=== PATIENT | female | born 1935 | race Caucasian/White ===

== ENCOUNTER 2022-04-15 10:40 | Outpatient (CLI) | payer MEDICARE, MEDICAID | END 2022-04-15 10:41 | disposition critical access hospital (66) | LOC: EMS 10:40 | DX: M25.512 Pain in left shoulder (principal); R51.9 Headache, unspecified | CPT/HCPCS: A0425; A0429 ==

== ENCOUNTER 2022-04-15 10:59 | Emergency (ER) | payer MEDICARE, MEDICAID ==
--- NOTE | 2022-04-15 12:30 | ED Physician Documentation ---
PD HPI UPPER EXT INJURY - Stated complaint Stated Complaint: L SHOULDER SPASMS - Chief complaint Chief Complaint: General - History obtained from History obtained from: Patient, Caregiver - History of Present Illness Location: Left, Shoulder, Other (lateral and posterior chest wall area on left. No pain on right. having some pain to neck and left head. No rash nor sores.) Type of injury: No: Fall, Twist Where injury occurred: Other (she is a resident [facility], with daughter living nearby.) Timing - onset: Today, Last night Timing - duration: Hours (8-10 hours since onset of the pains.) Timing - details: Gradual onset, Still present, Waxing and waning. No: Intermittant Improved by: No: Rest Worsened by: Moving (left shoulder abduction to 90 degrees is most painful, and with overhead reaching. Not pleuritic.). No: Palpating Associated symptoms: No: Weakness, Numbness, Swelling Similar symptoms before: Has not had sx before Recently seen: Not recently seen Review of Systems Constitutional: reports: Myalgias, Fatigue (for 2-3 days). denies: Fever, Chills Nose: reports: Rhinorrhea / runny nose, Congestion Throat: reports: Sore throat Cardiac: denies: Chest pain / pressure, Palpitations Respiratory: reports: Dyspnea, Cough (mild) GI: denies: Abdominal Pain, Vomiting, Diarrhea Skin: denies: Rash, Lesions Musculoskeletal: reports: Neck pain (left side of neck.) Neurologic: reports: Generalized weakness, Headache (left side). denies: Focal weakness, Near syncope, Altered mental status, Head injury PD PAST MEDICAL HISTORY - Past Medical History Respiratory: None Endocrine/Autoimmune: Type 2 diabetes - Present Medications Home Medications: Ambulatory Orders Medication Instructions Recorded Confirmed ALPRAZolam [Xanax] 0.25 mg PO TID PRN 04/15/22 04/15/22 Acetaminophen [Acetaminophen Extra 500 mg PO QID PRN #30 tablet 04/15/22 Strength] Acetaminophen [Tylenol] 650 mg PO Q6H PRN 04/15/22 04/15/22 Albuterol Sulf [Ventolin Hfa 2 puffs INH QID #1 each 04/15/22 Inhaler] Atorvastatin [Lipitor] 5 mg ORAL HS 04/15/22 04/15/22 Donepezil HCl [Aricept] 10 mg PO DAILY 04/15/22 04/15/22 Escitalopram [Lexapro] 10 mg PO DAILY 04/15/22 04/15/22 Gabapentin [Neurontin] 300 mg PO BID 04/15/22 04/15/22 Levothyroxine Sodium 50 mcg PO DAILY 04/15/22 04/15/22 [Levothyroxine] Losartan Potassium [Cozaar] 100 mg PO DAILY 04/15/22 04/15/22 Metoprolol Succinate 100 mg PO DAILY 04/15/22 04/15/22 Multivitamin 1 each PO DAILY 04/15/22 04/15/22 Nitrofurantoin [Macrobid] 100 mg PO BID 04/15/22 04/15/22 Omeprazole Magnesium 20 mg PO DAILY 04/15/22 04/15/22 QUEtiapine [SEROquel] 25 mg PO QPM 04/15/22 04/15/22 Sitagliptin Phosphate [Januvia] 25 mg PO DAILY 04/15/22 04/15/22 Zolpidem [Ambien] 5 mg PO HS 04/15/22 04/15/22 buPROPion [Wellbutrin Sr] 150 mg PO BID 04/15/22 04/15/22 cephALEXin [Keflex] 500 mg PO TID #18 cap 04/15/22 - Allergies Allergies/Adverse Reactions: Allergies Allergy/AdvReac Type Severity Reaction Status Date / Time ciprofloxacin Allergy Unknown Verified 04/15/22 11:10 codeine Allergy Unknown Verified 04/15/22 11:10 Corticosteroids Allergy Unknown Verified 04/15/22 11:10 (Glucocorticoids) erythromycin base Allergy Unknown Verified 04/15/22 11:10 haloperidol [From Haldol] Allergy Unknown Verified 04/15/22 11:10 PD ED PE NORMAL - Vitals Vital signs reviewed: Yes - General General: Alert and oriented X 3, No acute distress, Well developed/nourished - HEENT HEENT: Atraumatic. No: Moist mucous membranes - Neck Neck: Supple, no meningeal sign, No bony TTP, No adenopathy - Cardiac Cardiac: RRR, No murmur - Respiratory Respiratory: No: Clear bilaterally (there are decreased sounds on left. prolonged expiratory phase. ) Results - Vitals Vitals: Vital Signs - 24 hr 04/15/22 04/15/22 04/15/22 11:10 15:17 17:12 Temperature 37.1 C Heart Rate 73 65 58 L Respiratory 18 14 15 Rate Blood Pressure 125/104 H 120/61 138/63 H O2 Saturation 94 96 92 Oxygen O2 Source Room air - Labs Labs: Laboratory Tests 04/15/22 04/15/22 04/15/22 13:10 13:10 13:10 WBC 15.8 H RBC 4.80 Hgb 13.8 Hct 44.9 MCV 93.5 MCH 28.8 MCHC 30.7 L RDW 13.7 Plt Count 207 MPV 9.1 Neut # (Auto) 13.6 H Lymph # (Auto) 1.3 L [place] # (Auto) 0.8 Eos # (Auto) 0.0 Baso # (Auto) 0.1 Absolute Nucleated RBC 0.00 Nucleated RBC % 0.0 ESR 27 Sodium 138 Potassium 5.0 Chloride 99 L Carbon Dioxide 27 Anion Gap 12.0 BUN 33 H Creatinine 1.4 H Estimated GFR (MDRD) 35 L Glucose 278 H Calcium 9.4 Total Bilirubin 0.9 AST 25 ALT 16 Alkaline Phosphatase 52 Troponin I High Sens Total Protein 7.4 Albumin 3.3 Globulin 4.1 Albumin/Globulin Ratio 0.8 L Lipase 42 Nasal Adenovirus (PCR) Nasal B. parapertussis DNA (PCR) Nasal Coronavir 229E PCR Nasal Coronavir HKU1 PCR Nasal Coronavir NL63 PCR Nasal Coronavir OC43 PCR Nasal Enterovir/Rhinovir PCR Nasal Influenza B PCR Nasal Influenza A PCR Nasal Parainfluen 1 PCR Nasal Parainfluen 2 PCR Nasal Parainfluen 3 PCR Nasal Parainfluen 4 PCR Nasal RSV (PCR) Nasal B.pertussis DNA PCR Nasal C.pneumoniae (PCR) [facility] Human Metapneumo PCR Nasal M.pneumoniae (PCR) Nasal SARS-CoV-2 (PCR) 04/15/22 04/15/22 13:10 15:10 WBC RBC Hgb Hct MCV MCH MCHC RDW Plt Count MPV Neut # (Auto) Lymph # (Auto) [place] # (Auto) Eos # (Auto) Baso # (Auto) Absolute Nucleated RBC Nucleated RBC % ESR Sodium Potassium Chloride Carbon Dioxide Anion Gap BUN Creatinine Estimated GFR (MDRD) Glucose Calcium Total Bilirubin AST ALT Alkaline Phosphatase Troponin I High Sens 11.7 Total Protein Albumin Globulin Albumin/Globulin Ratio Lipase Nasal Adenovirus (PCR) NOT DETECTED Nasal B. parapertussis DNA (PCR) NOT DETECTED Nasal Coronavir 229E PCR NOT DETECTED Nasal Coronavir HKU1 PCR NOT DETECTED Nasal Coronavir NL63 PCR NOT DETECTED Nasal Coronavir OC43 PCR NOT DETECTED Nasal Enterovir/Rhinovir PCR NOT DETECTED Nasal Influenza B PCR NOT DETECTED Nasal Influenza A PCR NOT DETECTED Nasal Parainfluen 1 PCR NOT DETECTED Nasal Parainfluen 2 PCR NOT DETECTED Nasal Parainfluen 3 PCR NOT DETECTED Nasal Parainfluen 4 PCR NOT DETECTED Nasal RSV (PCR) NOT DETECTED Nasal B.pertussis DNA PCR NOT DETECTED Nasal C.pneumoniae (PCR) NOT DETECTED [facility] Human Metapneumo PCR NOT DETECTED Nasal M.pneumoniae (PCR) NOT DETECTED Nasal SARS-CoV-2 (PCR) NOT DETECTED - Rads (name of study) chest CT Radiology: Prelim report reviewed (no fractures nor bony structure abnormality. Lungs however show diffuse left sided patchy groundglass deformities/infiltrates c/w pneumonia. ), See rad report neck cT Radiology: Prelim report reviewed, EMP read indepedently (arthritic, without fractures. ), See rad report head cT Radiology: Prelim report reviewed PD Medical Decision Making - ED course Complexity details: reviewed results (patient has infiltrative appearance left chest c/w pneumonia. She is appearing stable for discharge and is at assisted living facility for help. ), re-evaluated patient, considered differential (mild cough but not generally feeling ill. Has pain left shoulder and side of neck, down the left posterolateral chest. nonpleuritic and onxygenation is adequate at 94% RA. Labs without abnormal trop. CT chest/neck/head done to eval for such as aortic dissection, CHF, pneumonia, etc. ), d/w patient, d/w family (her daughter was at ER for short time and gave information on patients baseeline level o function lately. ) Departure - Departure Disposition: 01 Home, Self Care Clinical Impression: Left-sided chest pain Pneumonia Qualifiers: Pneumonia type: due to unspecified organism Laterality: left Lung location: unspecified part of lung Qualified Code(s): J18.9 - Pneumonia, unspecified organism Condition: Stable Record reviewed to determine appropriate education?: Yes Follow-Up: Yeimy Head MD [Primary Care Provider] - Prescriptions: Acetaminophen [Acetaminophen Extra Strength] 500 mg PO QID PRN #30 tablet PRN Reason: Pain cephALEXin [Keflex] 500 mg PO TID #18 cap Albuterol Sulf [Ventolin Hfa Inhaler] 2 puffs INH QID #1 each Comments: Your CT scan of the chest does not show any obvious bony abnormalities to account for pain. There is patchy infiltrates on the left lung consistent with an infectious process/pneumonia. It is not apparent on the right. This would be more inclined to think of a bacterial cause in the setting. We do have a viral respiratory panel test pending. This would be looking for viral causes such as COVID/flu/metapneumovirus/other viruses. At this he will treat you with antibiotics given the concern for possible bacterial component. Along with that you can use Tylenol 500 mg 4 times daily regularly for the next week to help with discomfort. Also albuterol inhaler 2 puffs 4 times a day for the next 1 to 2 weeks to help with breathing. Your EKG and blood test do not show any signs of acute heart injury/heart attack. Continue your other usual medicines. I Printed off your prescriptions for you to bring to your preferred pharmacy. If you prefer you can have welcome home call us and we can transmit them to a particular pharmacy if you know which. Discharge Date/Time: 04/15/22 18:24
[2022-04-15] MEDS ORDERED: KETOROLAC 15 MG/ML VIAL IVP STA (12:58)
[2022-04-15] MEDS ORDERED: SODIUM CHLORIDE 0.9% 1,000 ML IV STA (13:00)
[2022-04-15] MEDS ORDERED: MORPHINE 2 MG/ML CARPUJECT IVP STA (13:03)
[2022-04-15 13:17] LABS: BASOPHILS # (AUTO) 0.1 10^3/uL (0.0-0.1); BASOPHILS % (AUTO) 0.4 %; EOSINOPHILS % (AUTO) 0.1 %; HCT - HEMATOCRIT 44.9 % (37.0-47.0); HGB - HEMOGLOBIN 13.8 g/dL (12.0-16.0); LYMPHOCYTES # (AUTO) 1.3 10^3/uL (1.5-3.5); LYMPHOCYTES % (AUTO) 8.3 %; MEAN CORPUSCULAR HEMOGLOBIN 28.8 pg (27.0-31.0); MEAN CORPUSCULAR HGB CONC 30.7 g/dL (32.0-36.0); MEAN CORPUSCULAR VOLUME 93.5 fL (81.0-99.0); MEAN PLATELET VOLUME 9.1 fL (7.9-10.8); MONOCYTES # (AUTO) 0.8 10^3/uL (0.0-1.0); MONOCYTES % (AUTO) 4.7 %; NEUTROPHILS # (AUTO) 13.6 10^3/uL (1.5-6.6); NEUTROPHILS % (AUTO) 86.1 %; PLT - PLATELET COUNT 207 10^3/uL (130-450); RED CELL DISTRIBUTION WIDTH 13.7 % (12.0-15.0); WHITE BLOOD COUNT 15.8 x10^3/uL (4.8-10.8)
[2022-04-15 13:40] LABS: ALBUMIN 3.3 g/dL (3.2-5.5); ALBUMIN/GLOBULIN RATIO 0.8 (1.0-2.2); BILIRUBIN,TOTAL 0.9 mg/dL (0.2-1.0); CALCIUM 9.4 mg/dL (8.5-10.3); CREATININE 1.4 mg/dL (0.4-1.0); TOTAL PROTEIN 7.4 g/dL (6.7-8.2)
[2022-04-15] MEDS ORDERED: iohexoL-300 100 ML VIAL ONE (13:47)
--- NOTE | 2022-04-15 14:41 | CT Report ---
PROCEDURE: CERVICAL SPINE WO INDICATIONS: head/neck/left chest pain TECHNIQUE: Noncontrast 3 mm thick sections acquired from the skull base to the T4 level. Sagittal and coronal r eformats were then constructed. For radiation dose reduction, the following was used: automated exp osure control, adjustment of mA and/or kV according to patient size. COMPARISON: None. FINDINGS: Degenerative straightening of the usual cervical lordosis. Anterolisthesis of C2 on C3 measuring 5 mm with widening of the C2-C3 interspinous distance and mild anterior subluxation of the right C2-C3 fa cet. This is presumably degenerative as there are overall moderate to severe extensive diffuse cervic al spine degenerative changes. Vertebral body heights are maintained. There is no evidence of fractur e. No suspicious lytic or blastic osseous lesion. Multiple degenerative Schmorl nodes and degenerativ e sclerotic changes along the endplates. Prevertebral and paraspinous soft tissues are within normal limits. IMPRESSION: No definite acute finding. Anterolisthesis of C2 on C3 with widening of the C2-C3 interspace and mild right C2-C3 facet subluxat ion. These findings are all considered degenerative in this instance as there are severe diffuse cerv ical spine degenerative changes and no reported history of trauma. Correlation for any point tenderne ss is nonetheless recommended. Reviewed by: Gt Barrios MD on 04/15/2022 2:39 PM PST Approved by: Gt Barrios MD on 04/15/2022 2:39 PM PST Station ID: [id number]
--- NOTE | 2022-04-15 14:42 | CT Report ---
PROCEDURE: HEAD WO INDICATIONS: headache, neck and left chest pain TECHNIQUE: Noncontrast 4.5 mm thick angled axial sections acquired from the foramen magnum to the vertex. For r adiation dose reduction, the following was used: automated exposure control, adjustment of mA and/or kV according to patient size. COMPARISON: None. 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 Severe global cerebral volume loss an d moderate-severe chronic microvascular ischemic change. No mass effect or midline shift. No acute in tracranial hemorrhage. Basilar cisterns and ventricular system are patent. No gross orbital abnormali ty. Paranasal sinuses and mastoid air cells clear. IMPRESSION: No acute intracranial finding. Age-related severe global cerebral volume loss and chroni c microvascular ischemic changes with remote bilateral occipital infarcts. Reviewed by: Gt Barrios MD on 04/15/2022 2:41 PM PST Approved by: Gt Barrios MD on 04/15/2022 2:41 PM PST Station ID: [id number]
--- NOTE | 2022-04-15 14:48 | CT Report ---
PROCEDURE: CHEST W INDICATIONS: onset left chest/back pain overnight CONTRAST:100ml Omnipaque 300 TECHNIQUE: After the administration of intravenous contrast, 1 mm axial images were acquired from the pulmonary apices through the posterior costophrenic angles. Axial 5 mm soft tissue kernel reconstructions were performed as well as 8 mm axial MIP and coronal and sagittal 5 mm reformations. For radiation dose reduction, the following was used: automated exposure control, adjustment of mA and/or kV according to patient size. COMPARISON: None. FINDINGS: Patchy mixed groundglass and consolidative nodular opacity throughout most of the left lung. No acute opacity in the right lung. No pleural effusion or pneumothorax. Gastric band device noted. Small hiatal hernia. Patulous esophagus. Normal heart size. Normal caliber thoracic aorta and main pulmonary trunk. No threshold enlarged thoracic lymph node by CT size criter ia. No acute finding in the partially imaged upper abdomen. Significant dilatation of the common duct and mild to moderate intrahepatic biliary ductal dilatation presumably represents postcholecystectomy reservoir phenomenon. No fracture identified. No suspiciou s lytic or blastic osseous lesion demonstrated. Severe degenerative changes at L1-L2 with irregular appearance of the endplates and associated sclero tic change. This is presumably degenerative although osteomyelitis could appear similar. There are no adjacent soft tissue changes to suggest a diagnosis of discitis/osteomyelitis, however. IMPRESSION: Diffuse patchy mixed groundglass and consolidative nodular opacities throughout most of the left lung and both upper and lower lobes. Findings are consistent with infectious process. Follow-up to docume nt complete resolution recommended. Chronic findings as described above Reviewed by: Gt Barrios MD on 04/15/2022 2:47 PM PST Approved by: Gt Barrios MD on 04/15/2022 2:47 PM PST Station ID: [id number]
[2022-04-15] MEDS ORDERED: cefTRIAXone 1 GM VIAL IVP STA (15:18)
[2022-04-15 16:19] LABS: B. PARAPERTUSSIS- RESP PCR PAN NOT DETECTED; B. PERTUSSIS- RESP PCR PANEL NOT DETECTED; C. PNEUMONIAE- RESP PCR PANEL NOT DETECTED; CORONAVIRUS 229E-RESP PCR NOT DETECTED; CORONAVIRUS HKU1-RESP PCR NOT DETECTED; CORONAVIRUS NL63-RESP PCR NOT DETECTED; CORONAVIRUS OC43-RESP PCR NOT DETECTED; HUMAN METAPNEUMOVIRUS NOT DETECTED; INFLUENZA A- RESP PCR PANEL NOT DETECTED; INFLUENZA B - RESP PCR PANEL NOT DETECTED; M. PNEUMONIAE- RESP PCR PANEL NOT DETECTED; PARAINFLUENZA VIRUS 1 NOT DETECTED; PARAINFLUENZA VIRUS 2 NOT DETECTED; PARAINFLUENZA VIRUS 3 NOT DETECTED; PARAINFLUENZA VIRUS 4 NOT DETECTED; RHINOVIRUS/ENTEROVIRUS NOT DETECTED; RSV- RESP PCR PANEL NOT DETECTED; SARS-CoV-2 -RESP PCR PANEL NOT DETECTED
[2022-04-15] MEDS ORDERED: iohexoL-300 100 ML VIAL IVP ONE (16:25)
[2022-04-15 17:12] VITALS: BP 138/63
[2022-04-15] MEDS ORDERED: ONDANSETRON 4 MG/2 ML VIAL IVP STA (18:04)
== END 2022-04-15 18:24 | disposition home or self-care (01) ==
LOC: ED 10:59
DX: J18.9 Pneumonia, unspecified organism (principal); M54.2 Cervicalgia; M25.512 Pain in left shoulder; R07.89 Other chest pain; Z20.822 Contact with and (suspected) exposure to COVID-19
CPT/HCPCS: 36415; 70450; 71260; 72125; 80053; 83690; 84484; 85025; 85651; 87633; 93005; 96361; 96374; 96375; 99284; 99285; Q9967

== ENCOUNTER 2022-12-03 09:56 | Outpatient (CLI) | payer MEDICARE, MEDICAID ==
[2022-12-03 10:32] LABS: BASOPHILS # (AUTO) 0.1 10^3/uL (0.0-0.1); BASOPHILS % (AUTO) 0.6 %; EOSINOPHILS # (AUTO) 0.6 10^3/uL (0.0-0.7); EOSINOPHILS % (AUTO) 5.1 %; HGB - HEMOGLOBIN 13.3 g/dL (12.0-16.0); LYMPHOCYTES # (AUTO) 1.9 10^3/uL (1.5-3.5); LYMPHOCYTES % (AUTO) 16.5 %; MEAN CORPUSCULAR HEMOGLOBIN 26.9 pg (27.0-31.0); MEAN CORPUSCULAR HGB CONC 29.6 g/dL (32.0-36.0); MEAN CORPUSCULAR VOLUME 90.9 fL (81.0-99.0); MEAN PLATELET VOLUME 8.7 fL (7.9-10.8); MONOCYTES # (AUTO) 0.8 10^3/uL (0.0-1.0); MONOCYTES % (AUTO) 6.5 %; NEUTROPHILS # (AUTO) 8.3 10^3/uL (1.5-6.6); PLT - PLATELET COUNT 265 10^3/uL (130-450); RED BLOOD COUNT 4.95 10^6/uL (4.20-5.40); RED CELL DISTRIBUTION WIDTH 15.6 % (12.0-15.0); WHITE BLOOD COUNT 11.8 x10^3/uL (4.8-10.8)
[2022-12-03 10:45] LABS: ALBUMIN 3.2 g/dL (3.2-5.5); ALBUMIN/GLOBULIN RATIO 0.8 (1.0-2.2); BILIRUBIN,TOTAL 0.4 mg/dL (0.2-1.0); CALCIUM 9.2 mg/dL (8.5-10.3); CREATININE 1.1 mg/dL (0.6-1.3); POTASSIUM 4.9 mmol/L (3.5-4.5); TOTAL PROTEIN 7.4 g/dL (6.4-8.9)
--- NOTE | 2022-12-03 16:24 | XRAY Report ---
PROCEDURE: Shoulder 3 View LT INDICATIONS: PAIN IN LEFT SHOULDER TECHNIQUE: 4 views of the shoulder were acquired. COMPARISON: None. FINDINGS: Bones: No fractures or dislocations. No suspicious bony lesions. Visualized ribs appear intact. Moderate to severe acromioclavicular as well as glenohumeral degenerative narrowing. Humeral head is mildly high riding. Soft tissues: No suspicious soft tissue calcifications. The visualized lungs are within normal limi ts. IMPRESSION: Glenohumeral and acromioclavicular arthritic change. High riding humeral head which can be seen with rotator cuff pathology. Reviewed by: Aysha Hurd MD on 12/03/2022 4:23 PM PDT Approved by: Aysha Hurd MD on 12/03/2022 4:23 PM PDT Station ID: [id number]
== END 2022-12-03 09:57 | disposition home or self-care (01) ==
LOC: LAB 09:56
PROVIDERS: ATTEND Internal Medicine
DX: R11.10 Vomiting, unspecified (principal); E03.9 Hypothyroidism, unspecified; Z79.899 Other long term (current) drug therapy; E11.9 Type 2 diabetes mellitus without complications; M19.012 Primary osteoarthritis, left shoulder
CPT/HCPCS: 36415; 80053; 85025; 85651

== ENCOUNTER 2022-12-10 10:39 | Outpatient (CLI) | payer MEDICARE, MEDICAID ==
--- NOTE | 2022-12-10 16:15 | Ultrasound Report ---
PROCEDURE: Abdomen Complete INDICATIONS: NAUSEA, DYSPEPSIA TECHNIQUE: Real-time scanning was performed of the abdominal and retroperitoneal organs, with image documentatio n. COMPARISON: CT chest 04/15/2022. FINDINGS: Liver: Liver is normal in size and homogeneous in echotexture. Gallbladder: Status post cholecystectomy. Biliary ducts: There is mild central intrahepatic biliary duct dilatation. Common hepatic duct measu res 5 mm in diameter. There is diffuse for evaluation of the common bile duct measuring up to 23 mm i n diameter. No definite distal filling defect is seen. Pancreas: Visualized portions of the pancreas are sonographically normal. Spleen: Spleen is not well visualized due to positioning and body habitus. Kidneys: Kidneys are normal in size and echotexture. Right kidney measures 8.8 cm long; left kidney measures 9.0 cm long. No hydronephrosis or nephrolithiasis. No solid masses. No complex renal cyst ic lesions which require follow-up. Aorta: Visualized aorta is normal in caliber at less than 3 cm. Iliacs: Proximal common iliac arteries are normal in caliber at less than 2.5 cm. IVC: Intrahepatic inferior vena cava is patent. Miscellaneous: No free abdominal fluid. IMPRESSION: 1.Fusiform dilatation of the common bile duct to 23 mm, not significantly changed compared to the CT from 04/15/2022. Findings may be secondary to a type I choledochal cyst versus distal obstruction or e xaggerated post cholecystectomy changes. Stable mild intrahepatic biliary duct dilatation. MRCP could be performed for further evaluation if indicated clinically. 2.Status post cholecystectomy. 3.Spleen is not well visualized. Reviewed by: Lennox Delgado MD on 12/10/2022 4:13 PM PDT Approved by: Lennox Delgado MD on 12/10/2022 4:13 PM PDT Station ID: [id number]
== END 2022-12-10 10:40 | disposition home or self-care (01) ==
LOC: DI 10:39
PROVIDERS: ATTEND Internal Medicine
DX: K83.9 Disease of biliary tract, unspecified (principal); K30 Functional dyspepsia; R11.0 Nausea

== ENCOUNTER 2023-01-23 14:24 | Outpatient (CLI) | payer MEDICARE, MEDICAID | END 2023-01-23 14:25 | disposition critical access hospital (66) | LOC: EMS 14:24 | DX: R53.1 Weakness (principal); R47.81 Slurred speech | CPT/HCPCS: A0425; A0429 ==

== ENCOUNTER 2023-01-23 14:45 | Emergency (ER) | payer MEDICARE, MEDICAID ==
[2023-01-23 15:28] LABS: BASOPHILS # (AUTO) 0.1 10^3/uL (0.0-0.1); BASOPHILS % (AUTO) 0.5 %; EOSINOPHILS # (AUTO) 0.5 10^3/uL (0.0-0.7); EOSINOPHILS % (AUTO) 4.6 %; HCT - HEMATOCRIT 43.7 % (37.0-47.0); HGB - HEMOGLOBIN 13.5 g/dL (12.0-16.0); LYMPHOCYTES % (AUTO) 18.7 %; MEAN CORPUSCULAR HGB CONC 30.9 g/dL (32.0-36.0); MEAN CORPUSCULAR VOLUME 90.7 fL (81.0-99.0); MEAN PLATELET VOLUME 8.8 fL (7.9-10.8); MONOCYTES # (AUTO) 0.9 10^3/uL (0.0-1.0); MONOCYTES % (AUTO) 8.5 %; NEUTROPHILS # (AUTO) 7.1 10^3/uL (1.5-6.6); NEUTROPHILS % (AUTO) 67.2 %; PLT - PLATELET COUNT 281 10^3/uL (130-450); RED BLOOD COUNT 4.82 10^6/uL (4.20-5.40); RED CELL DISTRIBUTION WIDTH 15.5 % (12.0-15.0); WHITE BLOOD COUNT 10.5 x10^3/uL (4.8-10.8)
--- NOTE | 2023-01-23 15:45 | ED Physician Documentation ---
History of Present Illness - Stated complaint Stated Complaint: AMS - Chief complaint Chief Complaint: General - History obtained from History obtained from: Patient, EMS - History of Present Illness Pain level max: 0 Pain level now: 0 - Additonal information Additional information: Patient is an 87-year-old female brought in by EMS. She has a history of dementia, she is DNR with limited interventions. 2 days ago the group home staff stated that she had slurred speech. They also feel like she has been weaker than usual. The slurred speech resolved prior to arrival today. No headache. No reported falls. No fevers. No abdominal pain. No vomiting. No diarrhea. No focal weakness reported. No changes to her medications reported. Patient is asymptomatic here. She states that she feels "great". She has no complaints. Review of Systems Unable to obtain: Dementia Constitutional: denies: Fever, Chills Nose: denies: Rhinorrhea / runny nose, Congestion GI: denies: Vomiting, Diarrhea Skin: denies: Rash Musculoskeletal: denies: Neck pain, Back pain Neurologic: denies: Headache PD PAST MEDICAL HISTORY - Past Medical History Past Medical History: Yes Cardiovascular: Hypertension, High cholesterol Respiratory: None Neuro: Dementia Endocrine/Autoimmune: Type 2 diabetes - Past Surgical History Past Surgical History: No - Present Medications Home Medications: Ambulatory Orders Medication Instructions Recorded Confirmed ALPRAZolam [Xanax] 0.25 mg PO TID PRN 04/15/22 01/23/23 Acetaminophen [Tylenol] 650 mg PO Q6H PRN 04/15/22 01/23/23 Albuterol Sulf [Ventolin Hfa 2 puffs INH QID #1 each 04/15/22 01/23/23 Inhaler] Atorvastatin [Lipitor] 5 mg ORAL HS 04/15/22 01/23/23 Donepezil HCl [Aricept] 10 mg PO DAILY 04/15/22 01/23/23 Escitalopram [Lexapro] 10 mg PO DAILY 04/15/22 01/23/23 Gabapentin [Neurontin] 300 mg PO BID 04/15/22 01/23/23 Levothyroxine Sodium 50 mcg PO DAILY 04/15/22 01/23/23 [Levothyroxine] Losartan Potassium [Cozaar] 100 mg PO DAILY 04/15/22 01/23/23 Metoprolol Succinate 100 mg PO DAILY 04/15/22 01/23/23 Multivitamin 1 each PO DAILY 04/15/22 01/23/23 Omeprazole Magnesium 20 mg PO DAILY 04/15/22 01/23/23 QUEtiapine [SEROquel] 25 mg PO QPM 04/15/22 01/23/23 Sitagliptin Phosphate [Januvia] 25 mg PO DAILY 04/15/22 01/23/23 Zolpidem [Ambien] 5 mg PO HS 04/15/22 01/23/23 buPROPion [Wellbutrin Sr] 150 mg PO BID 04/15/22 01/23/23 - Allergies Allergies/Adverse Reactions: Allergies Allergy/AdvReac Type Severity Reaction Status Date / Time ciprofloxacin Allergy Unknown Verified 01/23/23 14:57 codeine Allergy Unknown Verified 01/23/23 14:57 Corticosteroids Allergy Unknown Verified 01/23/23 14:57 (Glucocorticoids) erythromycin base Allergy Unknown Verified 01/23/23 14:57 haloperidol [From Haldol] Allergy Unknown Verified 01/23/23 14:57 - Social History Does the pt smoke?: No Smoking Status: Never smoker Does the pt drink ETOH?: No Does the pt have substance abuse?: No - Immunizations Immunizations are current?: Yes - POLST Patient has POLST: Yes PD ED PE NORMAL - Vitals Vital signs reviewed: Yes - General General: No acute distress, Well developed/nourished, Other (Patient is alert, oriented to person and place.) - HEENT HEENT: Atraumatic, PERRL, Moist mucous membranes, Pharynx benign, Other (Clear speech) - Neck Neck: Supple, no meningeal sign - Cardiac Cardiac: RRR, Strong equal pulses - Respiratory Respiratory: No respiratory distress, Clear bilaterally - Abdomen Abdomen: Soft, Non tender, Non distended - Back Back: No spinal TTP - Derm Derm: Warm and dry, No rash - Extremities Extremities: No edema, No calf tenderness / cord - Neuro Neuro: 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, No motor deficit, No sensory deficit, Normal speech Eye Opening: Spontaneous Motor: Obeys Commands Verbal: Confused (Baseline mentation) GCS Score: 14 - Psych Psych: Normal mood Results - Vitals Vitals: Vital Signs - 24 hr 01/23/23 01/23/23 14:47 17:10 Temperature 36.7 C Heart Rate 66 75 Respiratory 11 L 14 Rate Blood Pressure 123/65 140/70 H O2 Saturation 93 Oxygen O2 Source Room air - Labs Labs: Laboratory Tests 01/23/23 01/23/23 01/23/23 15:13 15:28 15:45 WBC 10.5 RBC 4.82 Hgb 13.5 Hct 43.7 MCV 90.7 MCH 28.0 MCHC 30.9 L RDW 15.5 H Plt Count 281 MPV 8.8 Neut # (Auto) 7.1 H Lymph # (Auto) 2.0 [place] # (Auto) 0.9 Eos # (Auto) 0.5 Baso # (Auto) 0.1 Absolute Nucleated RBC 0.00 Nucleated RBC % 0.0 Sodium 134 L Potassium 4.0 Chloride 97 L Carbon Dioxide 31 Anion Gap 6.0 BUN 36 H Creatinine 1.5 H Estimated GFR (MDRD) 33 L Glucose 176 H Calcium 9.4 Total Bilirubin 0.4 AST 14 ALT 9 L Alkaline Phosphatase 61 Total Protein 7.5 Albumin 3.3 Globulin 4.2 Albumin/Globulin Ratio 0.8 L Lipase 60 Urine Color YELLOW Urine Clarity CLEAR Urine pH 6.0 Ur Specific [place] 1.025 Urine Protein NEGATIVE Urine Glucose (UA) NEGATIVE Urine Ketones NEGATIVE Urine Occult Blood NEGATIVE Urine Nitrite NEGATIVE Urine Bilirubin NEGATIVE Urine Urobilinogen 0.2 (NORMAL) Ur Leukocyte Esterase NEGATIVE Ur Microscopic Review NOT INDICATED Urine Culture Comments NOT INDICATED - Rads (name of study) angio head and neck Relevant Findings:: Final report received, See rad report PD Medical Decision Making - ED course Complexity details: reviewed results, re-evaluated patient, considered differential, d/w patient, d/w family ED course: 87-year-old female with report of slurred speech 2 days ago. No slurred speech today. At her normal mental baseline. No significant lab abnormalities. No UTI. No significant acute findings on CT angiogram head and neck. 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 Not consistent with her current symptoms. She does have a history of lung disease, discussed this with her doctor, they do not think she would want any treatment or further evaluation including a chest CT at this time. Patient has no focal neurological deficits. As she is at her normal mental baseline, we will have her follow-up with her PCP for further care. Family counseled regarding signs and symptoms for which I believe and urgent re-evaluation would be necessary. Family with good understanding of and agreement to plan and is comfortable going home at this time This document was made in part using voice recognition software. While efforts are made to proofread this document, sound alike and grammatical errors may occur. Departure - Departure Disposition: 01 Home, Self Care Clinical Impression: Slurred speech Dementia Qualifiers: Dementia type: unspecified type Dementia severity: unspecified severity Dementia behavioral or psychological symptom: with agitation Qualified Code(s): F03.911 - Unspecified dementia, unspecified severity, with agitation Condition: Good Instructions: ED Dementia Caregiver Support Follow-Up: your,doctor in 3 days [Other] Comments: Her CT of her head does not show any acute abnormalities. The angiogram of her head and neck show chronic changes but no acute issues as well. She does appear to have lung disease on her CT scan, this can be further evaluated with her doctor as needed. Her laboratory testing does not show any abnormalities and she does not have a bladder infection. She appears to be at her baseline currently. Please follow-up with her doctor for further care. PROCEDURE: CT Angio Head/Neck INDICATIONS: slurred speech x 40 hours, now resolved TECHNIQUE: Pre-contrast 4.5 mm thick sections acquired from the foramen magnum to the vertex. After the administration of intravenous contrast, 1 mm thick sections acquired from the aortic arch through the [place] of [place]. Post-contrast 4.5 mm thick sections then re-acquired from the foramen magnum to the vertex. 3-dimensional oiuvnfy-cwefkvpsa-wxqpxpdvyw (MIP) and/or volume rendering reformats were acquired of the central intracranial vasculature and neck separately. For radiation dose reduction, the following was used: automated exposure control, adjustment of mA and/or kV according to patient size. CONTRAST: See chart COMPARISON: None FINDINGS: Image quality: Excellent. BRAIN: CSF spaces: Ventricles are normal in size and shape. Basal cisterns are patent. No extra-axial fluid collections. Brain: No obvious acute parenchymal abnormalities. Skull and face: Calvarium and facial bones appear intact, without suspicious lesions. Orbits appear normal. Sinuses: Sinuses and mastoids are clear. HEAD CT ANGIOGRAPHY: Anterior circulation: Intracranial internal carotid arteries are normal in size and flow. The flow within the paired anterior cerebral arteries is normal and symmetric. The flow within the middle cerebral arteries is normal and symmetric. The anterior communicating artery is seen. No aneurysms are seen. Posterior circulation: There is retrograde flow in the left vertebral artery which is occluded proximally. The distal right vertebral artery is dominant and gives rise to a normal caliber basilar artery. Flow within the posterior cerebral arteries is normal and symmetric. No aneurysms are seen. NECK CT ANGIOGRAPHY: Carotid system: The great vessels demonstrate a conventional anatomy as they arise from the aortic arch. The origins of the common carotid arteries appear patent. The common carotid arteries demonstrate normal caliber and courses. The bifurcation regions are both widely patent. Bilateral mild, less than 50% proximal internal carotid artery stenoses. The high cervical right carotid is deviated medially anterior to the dens. Posterior circulation: The left vertebral artery is occluded near its origin. The occlusion is of uncertain chronicity. It reconstitutes and has retrograde flow down to the level of just above the C1 vertebral foramen. The right vertebral artery is dominant and widely patent. Neck is rise to a normal caliber basilar artery. They join to form a normal appearing basilar artery. Soft tissues: Visualized neck soft tissues demonstrate no suspicious abnormalities. Ill-defined reticular nodular infiltrates in the apical regions bilaterally. Findings include more sizable confluent nodular opacities. Bones: No suspicious bony lesions. Visualized cervical spine appears normally aligned. 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 IMPRESSION: 1. 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 There is retrograde flow in the left vertebral artery to just above the level of the C1 vertebral foramen. 2. Otherwise unremarkable CTA head. 3. Bilateral less than 50% proximal internal carotid artery stenosis. 4. 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 5. Chronic left sternoclavicular joint dislocation incidentally noted. 6. There is a process involving the lung apices which is of uncertain etiology. Consider chest CT for further evaluation. The estimate of stenosis included in the report of the imaging study was calculated using the NASCET method Forms: PCP List Discharge Date/Time: 01/23/23 18:37 NIHSS - Time Time: 15:30 - Level of Consciousness Level of consciousness: (0) Alert, Keenly responsive LOC Questions: (1) Answers one Q correctly LOC Commands: (0) Performs both correctly - Gaze Best Gaze: (0) Normal - Visual Visual: (0) No loss - Facial Palsy Facial Palsy: (0) Normal, symmetrical movement - Motor Arms (both separate) Motor Arm (right): (0) No drift Motor Arm (left): (0) No drift - Motor Legs (both separate) Motor Leg (right): (0) No drift Motor Leg (left): (0) No drift - Limb Ataxia Limb Ataxia: (0) Absent - Sensory Sensory: (0) Normal - Best Language Best Language: (0) No aphasia - Dysarthria Dysarthria: (0) Normal - Extinction and Inattention (formally neg Extinction and inattention: (0) No abnormality - Total Score/Results Total Score/Result: 1
[2023-01-23 15:52] LABS: BILIRUBIN,URINE NEGATIVE (NEGATIVE); GLUCOSE, URINE (UA) NEGATIVE (NEGATIVE); KETONES,URINE (UA) NEGATIVE (NEGATIVE); LEUKOCYTE ESTERASE, URINE NEGATIVE (NEGATIVE); NITRITE,URINE NEGATIVE (NEGATIVE); OCCULT BLOOD,URINE NEGATIVE (NEGATIVE); PROTEIN,URINE NEGATIVE (NEGATIVE); UROBILINOGEN,URINE 0.2 (NORMAL) E.U./dL (NORMAL)
[2023-01-23 15:54] LABS: ALBUMIN 3.3 g/dL (3.2-5.5); ALBUMIN/GLOBULIN RATIO 0.8 (1.0-2.2); BILIRUBIN,TOTAL 0.4 mg/dL (0.2-1.0); CALCIUM 9.4 mg/dL (8.5-10.3); CREATININE 1.5 mg/dL (0.6-1.3); TOTAL PROTEIN 7.5 g/dL (6.4-8.9)
[2023-01-23 15:56] LABS: CLARITY,URINE CLEAR (CLEAR)
[2023-01-23] MEDS ORDERED: iohexoL-300 100 ML VIAL IVP ONE (16:32)
[2023-01-23 17:17] VITALS: BP 140/70; O2SAT 93
--- NOTE | 2023-01-23 17:22 | CT Report ---
PROCEDURE: CT Angio Head/Neck INDICATIONS: slurred speech x 40 hours, now resolved TECHNIQUE: Pre-contrast 4.5 mm thick sections acquired from the foramen magnum to the vertex. After the adminis tration of intravenous contrast, 1 mm thick sections acquired from the aortic arch through the [place] of [place]. Post-contrast 4.5 mm thick sections then re-acquired from the foramen magnum to the vert ex. 3-dimensional xdegcye-abiknpuhj-duybugopaq (MIP) and/or volume rendering reformats were acquired of the central intracranial vasculature and neck separately. For radiation dose reduction, the foll owing was used: automated exposure control, adjustment of mA and/or kV according to patient size. CONTRAST: See chart COMPARISON: None FINDINGS: Image quality: Excellent. BRAIN: CSF spaces: Ventricles are normal in size and shape. Basal cisterns are patent. No extra-axial flu id collections. Brain: No obvious acute parenchymal abnormalities. Skull and face: Calvarium and facial bones appear intact, without suspicious lesions. Orbits appear normal. Sinuses: Sinuses and mastoids are clear. HEAD CT ANGIOGRAPHY: Anterior circulation: Intracranial internal carotid arteries are normal in size and flow. The flow within the paired anterior cerebral arteries is normal and symmetric. The flow within the middle cer ebral arteries is normal and symmetric. The anterior communicating artery is seen. No aneurysms are seen. Posterior circulation: There is retrograde flow in the left vertebral artery which is occluded proxim ally. The distal right vertebral artery is dominant and gives rise to a normal caliber basilar artery . Flow within the posterior cerebral arteries is normal and symmetric. No aneurysms are seen. NECK CT ANGIOGRAPHY: Carotid system: The great vessels demonstrate a conventional anatomy as they arise from the aortic a [facility]. The origins of the common carotid arteries appear patent. The common carotid arteries demonstr ate normal caliber and courses. The bifurcation regions are both widely patent. Bilateral mild, less than 50% proximal internal carotid artery stenoses. The high cervical right carotid is deviated medi ally anterior to the dens. Posterior circulation: The left vertebral artery is occluded near its origin. The occlusion is of unc ertain chronicity. It reconstitutes and has retrograde flow down to the level of just above the C1 ve rtebral foramen. The right vertebral artery is dominant and widely patent. Neck is rise to a normal c aliber basilar artery. They join to form a normal appearing basilar artery. Soft tissues: Visualized neck soft tissues demonstrate no suspicious abnormalities. Ill-defined ret icular nodular infiltrates in the apical regions bilaterally. Findings include more sizable confluent nodular opacities. Bones: No suspicious bony lesions. Visualized cervical spine appears normally aligned. 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 IMPRESSION: 1. 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 There is retrograde flow in the left vertebral artery to just above the level of the C1 vertebral foramen. 2. Otherwise unremarkable CTA head. 3. Bilateral less than 50% proximal internal carotid artery stenosis. 4. Incidental noted is made of an ectopic medially directed course of the high cervical right interna l carotid artery. 5. Chronic left sternoclavicular joint dislocation incidentally noted. 6. There is a process involving the lung apices which is of uncertain etiology. Consider chest CT for further evaluation. The estimate of stenosis included in the report of the imaging study was calculated using the NASCET method Reviewed by: Jacob Garcia MD on 01/23/2023 5:20 PM PST Approved by: Jacob Garcia MD on 01/23/2023 5:20 PM PST Station ID: [id number]
== END 2023-01-23 18:37 | disposition home or self-care (01) ==
LOC: EDUNIT# → ED 14:45
DX: F03.911 Unspecified dementia, unspecified severity, with agitation (principal); R47.81 Slurred speech; Z66 Do not resuscitate; I10 Essential (primary) hypertension; E11.9 Type 2 diabetes mellitus without complications
CPT/HCPCS: 36415; 70496; 70498; 80053; 81003; 83690; 85025; 99283; 99284; Q9967; 81001; 87086

== ENCOUNTER 2023-01-23 18:39 | Outpatient (CLI) | payer MEDICARE, MEDICAID | END 2023-01-23 23:59 | disposition home or self-care (01) | LOC: EMS 18:39 | PROVIDERS: ATTEND Emergency Medicine | DX: F03.90 Unspecified dementia, unspecified severity, without behavioral disturbance, psychotic disturbance, mood disturbance, and anxiety (principal); R41.0 Disorientation, unspecified | CPT/HCPCS: A0425; A0428 ==